=== PATIENT | male | born 1940 | race African-American/Black ===

== ENCOUNTER → 2017-01-30 | Outpatient (CLI) | payer OTHER ==
[2016-02-12 13:23] VITALS: BP 175/83
[2017-01-30 08:35] LABS: BASOPHILS % (AUTO) 0.2 % (0.2-1.0); EOSINOPHILS # (AUTO) 0.7 x10^3/uL (0.0-0.2); EOSINOPHILS % (AUTO) 14.6 % (0.9-2.9); HEMATOCRIT 40.9 % (42.0-54.0); HEMOGLOBIN 13.6 g/dL (13.5-18.0); LYMPHOCYTES # (AUTO) 1.5 X10^3/uL (1.3-2.9); MEAN CORPUSCULAR HEMOGLOBIN 27.3 pg (27.0-34.0); MEAN CORPUSCULAR HGB CONC 33.4 g/dL (33.0-35.0); MEAN CORPUSCULAR VOLUME 81.8 fL (80.0-100.0); MEAN PLATELET VOLUME 8.8 fL (7.4-11.0); MONOCYTES # (AUTO) 0.4 x10^3/uL (0.3-0.8); MONOCYTES % (AUTO) 7.6 % (0.0-13.0); NEUTROPHILS # (AUTO) 2.2 x10^3/uL (2.2-4.8); NEUTROPHILS % (AUTO) 46.6 % (42.0-75.0); PLATELET COUNT 171 X10^3/uL (150.0-450.0); RED CELL DISTRIBUTION WIDTH 14.6 % (11.6-16.5); WHITE BLOOD COUNT 4.8 X10^3/uL (3.6-10.0)
[2017-01-30 08:42] LABS: BLOOD UREA NITROGEN 14 mg/dL (7-18); CALCIUM 9.1 mg/dL (8.5-10.1); CARBON DIOXIDE 28.7 mmol/L (21-32); CHLORIDE 108 mmol/L (98-107); CREATININE 1.17 mg/dL (0.70-1.30); GLUCOSE 88 mg/dL (65-99); SODIUM 145 mmol/L (136-145); eGFR BLACK RACES > 60 (>60); eGFR NON BLACK RACES > 60 (>60)
== END ==
LOC: LAB 07:34
PROVIDERS: ATTEND Internal Medicine Cardiovascular Disease
DX: I10 Essential (primary) hypertension (principal); Z79.01 Long term (current) use of anticoagulants
CPT/HCPCS: 36415; 80048; 85025; 85610; 85730

== ENCOUNTER → 2017-05-18 | Outpatient (CLI) | payer OTHER ==
[2016-02-12 13:23] VITALS: BP 175/83
--- NOTE | 2017-05-19 12:54 | MRI ---
STUDY: MRI OF THE CERVICAL SPINE HISTORY: Pain, numbness and tingling in left arm. Comparison: None. Technique: An MRI of the cervical spine including sagittal T1, T2, and T2 STIR, axial T1, and T2 FSE images was performed using standard departmental protocol. Findings: Sagittal images: Visualized portions of the posterior fossa are within normal limits. The craniocervical junction is unremarkable. There is straightening of the upper cervical lordosis. Vertebral body heights and align ment are otherwise within normal limits. Marrow signal is heterogeneous. There is focal T1 and T2 h yperintensity in the C2 vertebral body at the base of the odontoid. There may be 2-3 separate foci of hyperintensity at this location, with at least 1 focus extending into the odontoid process itself. T here is failure of suppression of signal on STIR images. There is no significant prevertebral soft t issue swelling. The surrounding paraspinal soft tissues are unremarkable. There is no evidence of c ord compression. No intrinsic signal abnormalities are identified in the spinal cord itself. Axial images: C2 -- C3: Normal. C3 -- C4: There is a disc osteophyte complex and bilateral uncovertebral osteophyte formation. The ce ntral canal is adequate. There is mild bilateral neural foraminal stenosis. C4 -- C5: There is a shallow disc osteophyte complex and bilateral uncovertebral osteophyte formation . There is pannx-jtgmols-dxao-left facet arthropathy. The central canal is adequate. There is mild le ft neural foraminal stenosis. There appears to be severe right neural foraminal stenosis. C5 -- C6: There is a posterior disc osteophyte complex and bilateral uncovertebral osteophyte formati on. This results in moderate central canal stenosis. There is severe bilateral neural foraminal steno sis at this level. C6 -- C7: There is a posterior disc osteophyte complex and bilateral uncovertebral osteophyte formati on. This results in moderate central canal stenosis. There is moderate left and severe right neural f oraminal stenosis at this level. C7 -- T1: There is a posterior disc osteophyte complex and bilateral uncovertebral osteophyte formati on. This results in moderate to severe spinal stenosis. There is severe bilateral neural foraminal st enosis at this level. IMPRESSION: 1. Multilevel cervical spondylosis as described. 2. Moderate to severe spinal stenosis at C7/T1. 3. Moderate spinal stenosis at C5/6 and C6/7. 4. Multilevel neural foraminal stenosis. Please see above for detail. Reported By:
== END | disposition home or self-care (01) | DRG 556 ==
LOC: RAD 10:28
PROVIDERS: ATTEND Obstetrics & Gynecology Obstetrics
DX: M79.602 Pain in left arm (principal); M47.893 Other spondylosis, cervicothoracic region; M48.03 Spinal stenosis, cervicothoracic region
CPT/HCPCS: 72141

== ENCOUNTER 2024-01-11 10:25 | Observation (INO) ==
[2024-01-11 10:37] VITALS: BMI 21.4
--- NOTE | 2024-01-11 11:26 | DR.EXTPAIN ---
HPI Time seen Time Seen by Provider: 01/11/24 11:25 PCP Primary Care Physician: Grullon Complaint/Symptoms Chief Complaint:: Pt c/o left inguinal hernia; he has seen PCP and has been waiting on appt with Dr. Vu but has not gotten a call about the appt. The pain is "getting worse and worse". Pain is worsened when he is sitting up and walking, pain is lessened when he is laying flat. Described as a "stabbing 8/10" pain. Self Treatment fo Chief Complaint: has not taken any RX meds this AM COVID-19 Coronavirus risk:travel/contact w/high risk person: No Has patient experienced Coronavirus symptoms: No Source History Provided: Patient Mode of arrival Mode of Arrival: Ambulatory Timing Onset of Chief Complaint: 01/04/24 PMH PMH Past Medical History: Yes Past Medical History: Coronary Artery Disease, Hypertension and ND Past Surgical History: Yes Surgical History: Angioplasty/Stents Family History History of Family Medical Conditions: Yes Family Medical History: ND, Coronary Artery Disease and Hypertension Social History Does patient currently use any type of tobacco product: No Have you used tobacco products in the last 12 months: No Type of Tobacco Use: None Does any household member use tobacco: No Alcohol Use: None Do you use any recreational Drugs:: No Lives With: Alone Lives Where: Home Travel Risk Coronavirus risk:travel/contact w/high risk person: No Has patient experienced Coronavirus symptoms: No Infectious screening In the last 2 months have you had wt loss of >10#?: NO Have you had fever, night sweats or hemotysis?: No Have you traveled outside the country in the last 6 months?: No Isolation: Standard PE Vital Signs Vitals: Vital Signs Temperature 98.1 F Pulse Rate 77 Respiratory Rate 17 Blood Pressure 140/64 O2 Sat by Pulse Oximetry 100 ROR Labs Reviewed 01/12/24 05:04 01/12/24 05:04 Laboratory: WBC 5.2 X10^3/uL (3.6-10.0) 01/11/24 11:37 RBC 4.91 X10^6/uL (4.7-6.0) 01/11/24 11:37 Hgb 13.4 g/dL (13.5-18.0) L 01/11/24 11:37 Hct 41.0 % (42.0-54.0) L 01/11/24 11:37 MCV 83.4 fL (80.0-100.0) 01/11/24 11:37 MCH 27.3 pg (27.0-34.0) 01/11/24 11:37 MCHC 32.7 g/dL (33.0-35.0) L 01/11/24 11:37 RDW 15.1 % (11.6-16.5) 01/11/24 11:37 Plt Count 235 X10^3/uL (150.0-450.0) 01/11/24 11:37 MPV 8.4 fL (7.4-11.0) 01/11/24 11:37 Neut % (Auto) 64.4 % (42.0-75.0) 01/11/24 11:37 Lymph % (Auto) 23.0 % (21.0-51.0) 01/11/24 11:37 [place] % (Auto) 10.2 % (0.0-13.0) 01/11/24 11:37 Eos % (Auto) 1.6 % (0.9-2.9) 01/11/24 11:37 Baso % (Auto) 0.8 % (0.2-1.0) 01/11/24 11:37 Neut # (Auto) 3.4 x10^3/uL (2.2-4.8) 01/11/24 11:37 Lymph # (Auto) 1.2 X10^3/uL (1.3-2.9) L 01/11/24 11:37 [place] # (Auto) 0.5 x10^3/uL (0.3-0.8) 01/11/24 11:37 Eos # (Auto) 0.1 x10^3/uL (0.0-0.2) 01/11/24 11:37 Baso # (Auto) 0.0 X10^3/uL (0.0-0.1) 01/11/24 11:37 Absolute Nucleated RBC 0.1 /100WBC 01/11/24 11:37 PT 14.5 SECONDS (11.8-14.3) 01/11/24 11:37 INR Target Range - 01/11/24 11:37 INR 1.15 (0.8-1.3) 01/11/24 11:37 APTT 40.5 SECONDS (22.9-36.5) H 01/11/24 11:37 PTT Comment - 01/11/24 11:37 Sodium 143 mmol/L (136-145) 01/11/24 11:37 Corrected Sodium TNP 01/11/24 11:37 Potassium 4.0 mmol/L (3.5-5.1) 01/11/24 11:37 Chloride 106 mmol/L (98-107) 01/11/24 11:37 Carbon Dioxide 26.2 mmol/L (21-32) 01/11/24 11:37 BUN 50 mg/dL (7-18) H 01/11/24 11:37 Creatinine 2.49 mg/dL (0.70-1.30) H 01/11/24 11:37 Est GFR (MDRD) Af Amer 32 (>60) L 01/11/24 11:37 Est GFR (MDRD) Non-Af 27 (>60) L 01/11/24 11:37 Glucose 99 mg/dL (65-99) 01/11/24 11:37 Calcium 10.6 mg/dL (8.5-10.1) H 01/11/24 11:37 Corrected Calcium 11.4 mg/dL (8.5-10.1) H 01/11/24 11:37 Total Bilirubin 0.30 mg/dL (0.2-1.0) 01/11/24 11:37 AST 23 Units/L (15-37) 01/11/24 11:37 ALT 26 Units/L (12-78) 01/11/24 11:37 Alkaline Phosphatase 64 Units/L (46-116) 01/11/24 11:37 Total Protein 8.1 g/dL (6.4-8.2) 01/11/24 11:37 Albumin 3.0 g/dL (3.4-5.0) L 01/11/24 11:37 Globulin 5.1 g/dL (2.5-4.5) H 01/11/24 11:37 Albumin/Globulin Ratio 0.6 Ratio (1.1-2.1) L 01/11/24 11:37 Opioid Opioid Risk Tool Age (Papa box if 16-45): No History of Preadolescent Sexual Abuse: No Total: 0 Total Score Risk Category: Low Risk Copyright: Joel KABA predicting aberrant behaviors Discharge Plan Discharge Plan Patient Disposition: 01 HOME, SELF-CARE Condition: Stable Orders to Discharge Patient Discharge Orders: Discharge (Routine); Ordered 01/12/24 Ordered By: JOE PAN
[2024-01-11 11:43] LABS: BASOPHILS % (AUTO) 0.8 % (0.2-1.0); EOSINOPHILS # (AUTO) 0.1 x10^3/uL (0.0-0.2); EOSINOPHILS % (AUTO) 1.6 % (0.9-2.9); HEMOGLOBIN 13.4 g/dL (13.5-18.0); LYMPHOCYTES # (AUTO) 1.2 X10^3/uL (1.3-2.9); MEAN CORPUSCULAR HEMOGLOBIN 27.3 pg (27.0-34.0); MEAN CORPUSCULAR HGB CONC 32.7 g/dL (33.0-35.0); MEAN CORPUSCULAR VOLUME 83.4 fL (80.0-100.0); MEAN PLATELET VOLUME 8.4 fL (7.4-11.0); MONOCYTES # (AUTO) 0.5 x10^3/uL (0.3-0.8); MONOCYTES % (AUTO) 10.2 % (0.0-13.0); NEUTROPHILS # (AUTO) 3.4 x10^3/uL (2.2-4.8); NEUTROPHILS % (AUTO) 64.4 % (42.0-75.0); PLATELET COUNT 235 X10^3/uL (150.0-450.0); RED BLOOD COUNT 4.91 X10^6/uL (4.7-6.0); RED CELL DISTRIBUTION WIDTH 15.1 % (11.6-16.5); WHITE BLOOD COUNT 5.2 X10^3/uL (3.6-10.0)
[2024-01-11 11:55] LABS: ALANINE AMINOTRANSFERASE 26 Units/L (12-78); ALKALINE PHOSPHATASE 64 Units/L (46-116); ASPARTATE AMINO TRANSFERASE 23 Units/L (15-37); BLOOD UREA NITROGEN 50 mg/dL (7-18); CALCIUM 10.6 mg/dL (8.5-10.1); CARBON DIOXIDE 26.2 mmol/L (21-32); CHLORIDE 106 mmol/L (98-107); COR CA(FOR HYPOALB) 11.4 mg/dL (8.5-10.1); CREATININE 2.49 mg/dL (0.70-1.30); GLUCOSE 99 mg/dL (65-99); SODIUM 143 mmol/L (136-145); TOTAL PROTEIN 8.1 g/dL (6.4-8.2); eGFR NON BLACK RACES 27 (>60)
[2024-01-11 12:19] LABS: INR 1.15 (0.8-1.3)
[2024-01-11] MEDS: LR 1,000 ML IV 1,000 ML IV SCH (12:38)
[2024-01-11] MEDS: ANCEF VIAL 1 GRAM IVP ONE (12:38)
--- NOTE | 2024-01-11 13:01 | EKG ---
Test Reason : PREOP Blood Pressure : */* mmHG Vent. Rate : 57 BPM Atrial Rate : 57 BPM P-R Int : 168 ms QRS Dur : 108 ms QT Int : 414 ms P-R-T Axes : 43 2 25 degrees QTc Int : 402 ms Sinus bradycardia with sinus arrhythmia Possible Left atrial enlargement Left ventricular hypertrophy ( R in aVL , Sokolow-Acosta , Lucernemines product ) Cannot rule out Inferior infarct , age undetermined Abnormal ECG No previous ECGs available Confirmed by Lupillo Candelario MD ([id number]) on 01/11/2024 12:28:58 PM Referred By: Confirmed By: Lupillo Candelario MD
--- NOTE | 2024-01-11 13:34 | RAD ---
EXAM:CHEST, 1 VIEWHISTORY:PRE OP HERNIA REPAIR;COMPARISON:No relevant prior studies were available for comparison at the time of interpretation.TECHNIQUE:CHEST, 1 VIEWFINDINGS:Chest:Lines and tubes: There is a loop recorderMediastinum: Cardiac and mediastinal shadow is within normal limits for size and contour.Pulmonary vessels: No pulmonary vascular congestion.Lung davenport: No suspicious airspace opacity.Pleura: No effusion. No pneumothorax.Bones and soft tissues: No acute osseous or soft tissue abnormality.IMPRESSION:1. No acute cardiopulmonary abnormalityTHIS IS AN ELECTRONICALLY VERIFIED FINAL REPORT01/11/2024 1:21 PM - Electronically signed by David Mcdonough MD
[2024-01-11] MEDS: NOZIN NASAL SANITIZER TP ONE (13:35)
[2024-01-11] MEDS: ANCEF VIAL 1 GRAM ONE (13:42)
[2024-01-11] MEDS: NS 100 ML IV 100 ML ONE (13:42)
[2024-01-11] MEDS: REGLAN INJ 10 MG VIAL ONE (13:47)
[2024-01-11] MEDS: ZOFRAN INJ 4 MG VIAL ONE (13:47)
[2024-01-11] MEDS: DIPRIVAN VIAL 20 ML ONE (13:47)
[2024-01-11] MEDS: FENTANYL VIAL INJ 100 mcg ONE (13:47)
[2024-01-11] MEDS: ROBINUL ONE (13:47)
[2024-01-11] MEDS: PEPCID 20 MG VIAL ONE (13:47)
[2024-01-11] MEDS ORDERED: XYLOCAINE 2 % (PLAIN) ONE (13:47)
[2024-01-11] MEDS ORDERED: ULTANE GAS IN ONE (13:47)
[2024-01-11] MEDS: PRECEDEX INJ VIAL ONE (13:58)
[2024-01-11] MEDS: EPHEDRINE SULFATE INJ ONE (14:12)
[2024-01-11] MEDS: POLYMYXIN B SULFATE ONE (14:12)
[2024-01-11] MEDS: MARCAINE 0.5% ONE (14:30)
[2024-01-11] MEDS: MORPHINE SULFATE INJ 10 MG ONE (14:40)
[2024-01-11] MEDS ORDERED: DILAUDID INJ IVP PRN (15:15)
[2024-01-11] MEDS ORDERED: BENADRYL INJ 50 MG VIAL IVP PRN (15:15)
[2024-01-11] MEDS ORDERED: ZOFRAN INJ 4 MG VIAL IVP PRN ×2 (15:15→15:20)
[2024-01-11] MEDS ORDERED: MORPHINE SULFATE INJ 2 MG INJ IVP PRN (15:20)
[2024-01-11] MEDS: PERCOCET TAB 5/325 MG PO PRN (18:17)
[2024-01-11 21:10] VITALS: RESP 18
[2024-01-12 05:30] LABS: BASOPHILS # (AUTO) 0.1 X10^3/uL (0.0-0.1); BASOPHILS % (AUTO) 0.6 % (0.2-1.0); EOSINOPHILS # (AUTO) 0.2 x10^3/uL (0.0-0.2); EOSINOPHILS % (AUTO) 2.2 % (0.9-2.9); HEMATOCRIT 39.9 % (42.0-54.0); LYMPHOCYTES # (AUTO) 1.8 X10^3/uL (1.3-2.9); LYMPHOCYTES % (AUTO) 21.3 % (21.0-51.0); MEAN CORPUSCULAR HEMOGLOBIN 27.2 pg (27.0-34.0); MEAN CORPUSCULAR HGB CONC 32.7 g/dL (33.0-35.0); MEAN CORPUSCULAR VOLUME 83.3 fL (80.0-100.0); MEAN PLATELET VOLUME 8.5 fL (7.4-11.0); MONOCYTES # (AUTO) 0.7 x10^3/uL (0.3-0.8); MONOCYTES % (AUTO) 8.5 % (0.0-13.0); NEUTROPHILS # (AUTO) 5.7 x10^3/uL (2.2-4.8); NEUTROPHILS % (AUTO) 67.4 % (42.0-75.0); PLATELET COUNT 258 X10^3/uL (150.0-450.0); RED BLOOD COUNT 4.79 X10^6/uL (4.7-6.0); RED CELL DISTRIBUTION WIDTH 14.9 % (11.6-16.5); WHITE BLOOD COUNT 8.4 X10^3/uL (3.6-10.0)
[2024-01-12 05:44] LABS: CALCIUM 10.5 mg/dL (8.5-10.1); CARBON DIOXIDE 28.5 mmol/L (21-32); COR CA(FOR HYPOALB) 11.3 mg/dL (8.5-10.1); CREATININE 2.12 mg/dL (0.70-1.30); POTASSIUM 3.4 mmol/L (3.5-5.1); TOTAL PROTEIN 8.2 g/dL (6.4-8.2)
[2024-01-12] MEDS ORDERED: CONSULT PHARMACY - POTASSIUM & MAGNESIUM XX SCH (06:00)
[2024-01-12] MEDS: K-DUR TAB 20 MEQ PO SCH (06:31)
[2024-01-12 09:03] VITALS: BP 182/79; PULSE 51; TEMP 98; O2SAT 97
== END 2024-01-12 09:35 | disposition home or self-care (01) ==
LOC: MED/SURG 10:25 → ER 10:25 → MED/SURG 13:10
PROVIDERS: ADMIT Surgery; ATTEND Surgery
DX: R94.31 Abnormal electrocardiogram [ECG] [EKG]; Z79.01 Long term (current) use of anticoagulants; Z01.811 Encounter for preprocedural respiratory examination; R00.1 Bradycardia, unspecified; R79.1 Abnormal coagulation profile; Z01.810 Encounter for preprocedural cardiovascular examination; I25.10 Atherosclerotic heart disease of native coronary artery without angina pectoris; I25.2 Old myocardial infarction; I10 Essential (primary) hypertension; K40.30 Unilateral inguinal hernia, with obstruction, without gangrene, not specified as recurrent; N40.0 Benign prostatic hyperplasia without lower urinary tract symptoms